=== PATIENT | female | born 1935 | race Caucasian/White ===

== ENCOUNTER 2016-09-17 08:31 | Emergency (ER) | payer BC, MEDICAID ==
[~2016-09-17] VITALS: Wt 78.0 kg
[~2016-09-17 08:31] MED LIST: ALPR1TAB7 PO; ASCO500C7 PO; FER325 PO; OXYB5TAB7 PO; PANT40TA3 PO; SERT-165 PO; SIMV20TA PO; TEMA30CA PO
[2016-09-17 09:34] LABS: ADD SCAN DIFF NO
[2016-09-17 09:36] LABS: BASOPHILS % 0.7 % (0.0-2.0); EOSINOPHILS # 0.7 10^3/ul (0.0-0.5); EOSINOPHILS % 10.9 % (0.0-7.0); HEMATOCRIT 31.1 % (37.0-47.0); HEMOGLOBIN 10.4 g/dl (12.0-16.0); LYMPHOCYTES # 1.8 10^3/ul (0.8-2.9); MEAN CORPUSCULAR HEMOGLOBIN 32.1 pg (29.0-33.0); MEAN CORPUSCULAR HGB CONC 33.4 g/dl (32.0-37.0); MEAN PLATELET VOLUME 10.2 fl (7.4-10.4); MONOCYTE # 0.6 10^3/ul (0.3-0.9); MONOCYTES % 10.4 % (0.0-11.0); NEUTROPHILS % 48.7 % (39.0-77.0); PLATELET COUNT 232 10^3/UL (140-415); RED BLOOD COUNT 3.24 10^6/ul (4.20-5.40); RED CELL DISTRIBUTION WIDTH 13.3 % (11.5-14.5); WHITE BLOOD COUNT 6.1 10^3/ul (4.8-10.8)
[2016-09-17 09:47] LABS: ALBUMIN 3.3 g/dl (3.3-4.9)
[2016-09-17 09:48] LABS: POTASSIUM 4.7 mmol/L (3.5-5.1)
[2016-09-17 09:50] LABS: ALBUMIN/GLOBULIN RATIO 1.03; BILIRUBIN,INDIRECT 0.1 mg/dl (0-1.1); BILIRUBIN,TOTAL 0.1 mg/dl (0.2-1.3); CALCIUM 8.6 mg/dl (8.4-10.2); CREATININE 1.18 mg/dl (0.44-1.00); TOTAL PROTEIN 6.5 g/dl (6.1-8.1)
[2016-09-17 09:57] LABS: PROTIME 13.2 Sec (12.2-14.2)
--- NOTE | 2016-09-17 10:04 | RADRPT ---
PROCEDURE: CT brain without contrast CLINICAL INDICATION: Syncope TECHNIQUE: CT of the brain without contrast performed on a multidetector CT scanner, with multiplan ar reformats. One or more of the following dose reduction techniques were used: Automated exposure control, adjustment in mA and / or kV according to patient size, use of iterative reconstructive maria alejandra hnique. CTDIvol = 45 mGy; DLP = 630 mGy-cm. COMPARISON: 02/09/2016 FINDINGS: No acute intracranial hemorrhage is identified. No extra-axial fluid collection is seen. There is no mass effect. No midline shift is identified. Ventricles and sulci are mild to moderately enlarged compatible with volume loss. There are mild are as of hypodensity in the periventricular - deep white matter which are nonspecific but suggestive of chronic small vessel ischemic changes. Black-white differentiation is preserved. There are calcifications in the right kb. Atherosclerotic calcifications of the intracranial internal carotid arteries are noted. Osseous structures are unremarkable. Mastoid air cells and imaged paranasal sinuses grossly clear. Overall, there has been no significant change. IMPRESSION: 1. No evidence of acute intracranial pathology. 2. Mild to moderate volume loss, with mild chronic small vessel ischemic changes. 3. Right pontine calcifications. 4. No significant change. RPTAT: VV .Gamaliel Leggett MD, Date Time Electronically viewed and signed by .Gamaliel Leggett MD, on 09/17/2016 10:04 .O/
--- NOTE | 2016-09-17 10:15 | RADRPT ---
PROCEDURE: Chest Radiograph. CLINICAL INDICATION: Syncope TECHNIQUE: Single frontal chest radiograph. COMPARISON: Chest radiograph 07/26/2016 FINDINGS: The heart is magnified. The cardiomediastinal silhouette is within normal limits. There is a mild interstitial prominence which is stable and likely related to chronic lung changes. No infiltrate or effusion is seen. The bones are intact. IMPRESSION: 1. No evidence of acute cardiopulmonary disease. 2. Chronic lung changes. RPTAT: AA .Cosme Leggett MD, Date Time Electronically viewed and signed by .Cosme Leggett MD, on 09/17/2016 10:14 .B/
--- NOTE | 2016-09-17 11:05 | ERA ---
ER Documentation Chief Complaint Date/Time DATE: 09/17/16 TIME: 0859 Chief Complaint BILATERAL WEAKNESS TO LEGS X 1 WEEK HPI 81-year-old female presents to the emergency department complaining of generalized weakness and passing out. Patient states that she has been feeling generally weak for approximately 1 week. Patient has no focal weakness numbness. She states over the last 24 hours she lost consciousness and fell in the bathroom. She hit her head. Since then, she has been feeling even weaker. Her family wrote a note stating that they were unable to take care of her and they were feeling uncomfortable with her being at home. Patient reports no fevers chills or discomforts at this current time. She has no traumatic complaints. She denies any palpitations. ROS All systems reviewed and are negative except as per history of present illness. Medications Home Meds Reported Medications Pantoprazole* (Protonix*) 40 Mg Tablet.dr, 40 MG PO DAILY, TAB 02/09/16 Simvastatin* (Zocor*) 20 Mg Tablet, 20 MG PO QHS, #30 TAB 09/05/15 Oxybutynin Chloride* (Ditropan*) 5 Mg Tab, 5 MG PO DAILY, TAB 09/05/15 Alprazolam* (Alprazolam*) 1 Mg Tablet, 1 MG PO TID, TAB 09/05/15 Ferrous Sulfate* (Ferrous Sulfate*) 325 Mg Tabec, 325 MG PO BID, TAB 09/05/15 Ascorbic Acid* (Vitamin C*) 500 Mg Capsule.sa, 500 MG PO DAILY, CAP 09/05/15 Sertraline Hcl* (Sertraline Hcl*) 100 Mg Tablet, 100 MG PO DAILY, #30 TAB 09/05/15 Temazepam* (Temazepam*) 30 Mg Capsule, 30 MG PO HS Y for INSOMNIA, CAP 09/05/15 Allergies Allergies: Coded Allergies: Sulfa (Sulfonamide Antibiotics) (Verified Allergy, Unknown, 09/17/16) sumatriptan (Verified Allergy, Unknown, 09/17/16) PMhx/Soc History of Surgery: Yes (Shoulder surgery, hysterectomy, tubal ligation) Anesthesia Reaction: No Hx Neurological Disorder: No Hx Respiratory Disorders: Yes (current smoker) Hx Cardiac Disorders: Yes (HTN, Hypercholestrolemia) Hx Psychiatric Problems: Yes (Anxiety) Hx Miscellaneous Medical Probl: No Hx Alcohol Use: No Hx Substance Use: No Hx Tobacco Use: Yes Smoking Status: Current some day smoker FmHx Noncontributory for chief complaint. The family states that they do not feel like they are able to care for her at this current time at home. Physical Exam Vitals Vital Signs Date Time Temp Pulse Resp B/P Pulse Ox O2 Delivery O2 Flow Rate FiO2 09/17/16 08:37 98.0 69 18 132/58 99 Physical Exam GENERAL: The patient is well developed and appropriate for usual state of health in no apparent distress HEENT: Pupils equal, round, and reactive to light. EOMI. There is no scleral icterus. No evidence of significant skull fracture or basilar skull trauma NECK: C-spine is soft and supple, there is no meningismus. There is no cervical lymphadenopathy. LUNGS: Clear to auscultation bilaterally. There are no rales, wheezes or rhonchi. HEART: Regular rate and rhythm, no murmurs, clicks, rubs or gallops. ABDOMEN: Soft, non-tender, non-distended. There are bowel sounds in all four quadrants. No rebound or guarding. EXTREMITIES: There is no peripheral cyanosis or edema. No focal swelling or erythema. NEURO: Patient is awake and following commands she is oriented. She is somewhat slow and slurring her words. She appears to be somewhat lethargic. Her pupils are midrange, equal round and reactive to light. Face is symmetric and tongue is midline. Motor strength is 5 out of 5 throughout all extremities. Gait was not assessed. SKIN: There is no apparent rash or petechiae. HEME/LYMPHATIC: There is no evidence of excessive bruising or lymphedema. PSYCHIATRIC: The patient does not appear anxious or depressed. Result Diagram: 09/17/1691409/17/16914 Results 24 hrs Laboratory Tests Test 09/17/16 09:15 Activated Partial Thromboplast Time 29.0Sec Alanine Aminotransferase (ALT/SGPT) 20IU/L Albumin 3.3g/dl Albumin/Globulin Ratio 1.03 Alkaline Phosphatase 93IU/L Anion Gap 14 Aspartate Amino Transf (AST/SGOT) 36IU/L Basophils # 0.010^3/ul Basophils % 0.7% Blood Urea Nitrogen 30mg/dl Calcium Level 8.6mg/dl Carbon Dioxide Level 30mmol/L Chloride Level 102mmol/L Creatinine 1.18mg/dl Direct Bilirubin 0.00mg/dl Eosinophils # 0.710^3/ul Eosinophils % 10.9% Globulin 3.20g/dl Glucose Level 101mg/dl Hematocrit 31.1% Hemoglobin 10.4g/dl INR International Normalized Ratio 1.00 Indirect Bilirubin 0.1mg/dl Lymphocytes # 1.810^3/ul Lymphocytes % 29.0% Mean Corpuscular Hemoglobin 32.1pg Mean Corpuscular Hemoglobin Concent 33.4g/dl Mean Corpuscular Volume 96.0fl Mean Platelet Volume 10.2fl Monocytes # 0.610^3/ul Monocytes % 10.4% Neutrophils # 3.010^3/ul Neutrophils % 48.7% Nucleated Red Blood Cells # 0.010^3/ul Nucleated Red Blood Cells % 0.0/100WBC Platelet Count 10347^3/UL Potassium Level 4.7mmol/L Prothrombin Time 13.2Sec Prothrombin Time Ratio 1.0 Red Blood Count 3.2410^6/ul Red Cell Distribution Width 13.3% Sodium Level 141mmol/L Total Bilirubin 0.1mg/dl Total Protein 6.5g/dl Troponin I < 0.012ng/ml White Blood Count 6.110^3/ul Procedures/MDM Patient was taken to a room, seen and evaluated. Comfort measures were initiated. Diagnostic tests were ordered and reviewed. 3 LEAD RHYTHM STRIP: Sinus bradycardia at 58 bpm EK lead EKG reviewed by myself: Normal Sinus Rhythm Normal Plato and intervals No ST elevation, depression, or T wave inversion Impression: Normal EKG RADIOLOGY: reviewed with the radiologist CONSULTATION: I spoke with . She has coordinated care with case managment who is trying to find an apporopriate [facility] placement for the patient. REEVALUATION: Patient is remained hemodynamically stable. MEDICAL DECISION MAKIN-year-old female presents to the emergency department after a syncopal episode with generalized weakness. Differential diagnosis entertained was broad and potential high acuity. At this time, patient shows no clear evidence of cardiac syncope with no evidence of arrhythmia or ischemia. She has a significant polypharmacy and I suspect most of her presentation is likely related to a mixture of her medications including narcotics and benzodiazepines. Her neurologic status is certainly consistent with a benzodiazepine and narcotic coingestion and toxidrome. At this time, given her social situation as well as her ongoing toxicologic needs and need for observation, she will require placement for further observation and supportive care. Departure Diagnosis: Primary Impression: Syncope Additional Impressions: Polypharmacy Adverse reaction to drug RENNY BLAKE Sep 17, 2016 11:05
[2016-09-17] MEDS ORDERED: LORAZEPAM 2 MG INJ IV ONE (15:00)
[2016-09-17 18:36] VITALS: BP 152/72; PULSE 78; RESP 16; TEMP 97.9
== END 2016-09-17 18:36 | disposition home or self-care (01) ==
LOC: E/R 08:31
DX: R55 Syncope and collapse (principal); T42.4X5A Adverse effect of benzodiazepines, initial encounter; T40.605A Adverse effect of unspecified narcotics, initial encounter; F17.210 Nicotine dependence, cigarettes, uncomplicated; I10 Essential (primary) hypertension
CPT/HCPCS: 36415; 70450; 71010; 80053; 84484; 85025; 85610; 85730; 93005; 96374; 99285; J2060